=== PATIENT | male | born 1970 | race Caucasian/White ===

== ENCOUNTER 2022-11-11 00:12 | Emergency (ER) | payer OTHER, SELFPAY ==
[2022-11-11 00:30] VITALS: BP 126/86; PULSE 117; O2SAT 97
--- NOTE | 2022-11-11 00:30 | [facility].EDGENADL ---
Discharge Plan Referrals Follow up/Referrals: Kenrick Isaacs [Primary Care Provider] - See instructions Clinical Impressions Clinical Impression: Exposure to bat without known bite Print Language Print Language: Yoruba Discharge ED Provider: Sergo Fisher General Adult HPI General Stated complaint: Bitten by bat 19 days ago needs exam Time Seen by Provider: 11/11/22 00:34 History of Present Illness HPI narrative: Patient presents to the emergency department requesting documentation that there are needle sticks in his left arm today. He states that he was bitten by a bat 19 days ago and was seen at another facility 2 days ago where he received a rabies immunization, rabies immunoglobulin as well as tetanus shot. He claims that he contacted law enforcement who instructed him to come to the emergency department. He denies any fever, chills, cough or congestion [facility] Disclaimer: The information contained in this section may have been updated after the patient was seen, as this information can be updated by other users. Social History Smoking Status: Current some day smoker alcohol intake: former current occupational status: unemployed Travel in the last 8 weeks: Inside the [place] ROS Obtained: Yes All systems reviewed & no additional complaints except as documented Integumentary/Breasts Skin/Breast: Reports other (Bat bite) Physical Exam General General appearance: alert, in no apparent distress and anxious Head Head exam: atraumatic and normocephalic Eye Eye exam: Present normal appearance, PERRL and EOMI Respiratory Respiratory exam: Present normal lung sounds bilaterally Cardiovascular Cardiovascular exam: Present regular rate and normal rhythm Neurological Exam Neurological exam: Present alert and oriented X3 Psychiatric Psychiatric exam: Present agitated and anxious Skin Skin exam: Present other (Patient has multiple punctate areas on the left forearm which could be consistent with needle sticks. There is no obvious erythema.) Medical Decision Making Dionicio Inquiry Pt receiving controlled substance: No Dionicio was queried for this patient: No Medical Decision Narrative: Patient was evaluated and appears to have multiple areas on his left arm which could be consistent with needle sticks. The patient was in no acute distress and had no other complaints this evening other than he wanted these documented. There is a Band-Aid on his left deltoid region from his immunization. Critical Care Time Critical Care Time Critical Care Time: No Attestation: On , the high probability of a clinically significant, sudden or life threatening deterioration of the following system(s) required my full and direct attention, intervention and personal management. The time I documented below is in addition to time spent performing reported procedures but includes the following listed in this critical care notation.
[2022-11-11 01:07] VITALS: BP 152/78; PULSE 73; RESP 19; TEMP 36.7; O2SAT 98; BMI 33.6
[2022-11-11 01:53] VITALS: BP 147/87; BP 148/78; PULSE 79; PULSE 81; RESP 19; TEMP 36.6; O2SAT 98
== END 2022-11-11 01:56 | disposition home or self-care (01) ==
LOC: ER 00:42
PROVIDERS: Emergency Provider Emergency Medicine; PCP Family Medicine
DX: Z20.9 Contact with and (suspected) exposure to unspecified communicable disease (principal)
CPT/HCPCS: 99281; 99282